=== PATIENT | female | born 1965 | race Caucasian/White ===

== ENCOUNTER → 2017-05-25 | Emergency (ER) | payer OTHER ==
[~2017-05-25] VITALS: Ht 167.6 cm; Wt 64.0 kg
[~2017-05-25] MED LIST: ORASEP SPRAY30 ML MM; ZYRTEC10 M3 PO
== END | disposition left against medical advice (07) ==
LOC: ER 09:56
DX: Z53.20 Procedure and treatment not carried out because of patient's decision for unspecified reasons (principal)

== ENCOUNTER 2019-12-16 09:39 | Outpatient (CLI) | payer OTHER | END 2019-12-16 09:48 | disposition home or self-care (01) | LOC: SONOGRAMA 09:39 → MAMO-SONO 09:45 → SONOGRAMA 09:48 | DX: R74.8 Abnormal levels of other serum enzymes (principal) ==

== ENCOUNTER 2020-09-06 08:13 | Outpatient (CLI) | payer OTHER | END 2020-09-06 08:30 | disposition home or self-care (01) | LOC: SONOGRAMA 08:13 | PROVIDERS: ATTEND Internal Medicine Gastroenterology | DX: M25.562 Pain in left knee (principal); M24.662 Ankylosis, left knee | CPT/HCPCS: 73221 ==

== ENCOUNTER 2021-01-21 10:51 | Outpatient (CLI) | payer OTHER | END 2021-01-21 10:59 | disposition home or self-care (01) | LOC: RAD 10:51 | PROVIDERS: ATTEND General Practice | DX: M79.671 Pain in right foot (principal) ==

== ENCOUNTER 2021-02-19 13:40 | Outpatient (CLI) | payer OTHER | END 2021-02-19 13:48 | disposition home or self-care (01) | LOC: RAD 13:40 | PROVIDERS: ATTEND General Practice | DX: S92.421D Displaced fracture of distal phalanx of right great toe, subsequent encounter for fracture with routine healing (principal) ==

== ENCOUNTER 2021-07-09 11:00 | Outpatient (CLI) | payer OTHER | END 2021-07-09 11:09 | disposition home or self-care (01) | LOC: MRI 11:00 | PROVIDERS: ATTEND Physical Medicine & Rehabilitation | DX: S83.242A Other tear of medial meniscus, current injury, left knee, initial encounter (principal); M17.12 Unilateral primary osteoarthritis, left knee | CPT/HCPCS: 73721 ==

== ENCOUNTER 2021-12-30 09:39 | Outpatient (CLI) | payer OTHER | END 2021-12-30 09:45 | disposition home or self-care (01) | LOC: RAD 09:39 | PROVIDERS: ATTEND Physical Medicine & Rehabilitation | DX: M65.331 Trigger finger, right middle finger (principal); M54.50 Low back pain, unspecified ==

== ENCOUNTER 2023-06-22 12:35 | Outpatient (CLI) | payer OTHER | END 2023-06-22 12:44 | disposition home or self-care (01) | LOC: MRI 12:35 | PROVIDERS: ATTEND Orthopaedic Surgery Sports Medicine | DX: S83.241A Other tear of medial meniscus, current injury, right knee, initial encounter (principal) | CPT/HCPCS: 73721 ==

== ENCOUNTER 2023-11-19 13:15 | Outpatient (CLI) | payer OTHER | END 2023-11-19 13:23 | disposition home or self-care (01) | LOC: MRI 13:15 | DX: G31.84 Mild cognitive impairment of uncertain or unknown etiology (principal) | CPT/HCPCS: 70551 ==